=== PATIENT | male | born 1995 | race Caucasian/White ===

== ENCOUNTER 2017-08-08 15:45 | Emergency (ER) | payer BC ==
[2017-08-08 15:51] VITALS: BP 153/83
[2017-08-08] MEDS ORDERED: Sodium Chloride 0.9% 2,000 ML IV STA (15:57)
[2017-08-08] MEDS ORDERED: Ondansetron 4 MG/2 ML SDV IVPUSH ONE (15:57)
[2017-08-08] MEDS ORDERED: Sodium Chloride 0.9% 10 ML Syringe FLUSH PRN (15:57)
--- NOTE | 2017-08-08 16:21 | EDM.PDOC ---
ED HPI GENERAL MEDICAL PROBLEM - General Chief Complaint: Gastrointestinal Problem Stated Complaint: VOMITING Time Seen by Provider: 08/08/17 15:51 Source of Information: Reports: Patient History Limitations: Reports: No Limitations - History of Present Illness INITIAL COMMENTS - FREE TEXT/NARRATIVE: The patient presents with nausea, vomiting, and mild abdominal pain. The patient was in [place] for a weeding and he woke up this morning and did not feel right. He had some alcohol the night before. He developed nausea and vomiting. He has some upper abdominal pain from the vomiting. He has some mild edema. He has chills but no fever. He has no cough, congestion or runny nose. He still has his gallbladder and appendix. He did not eat any bad food. He is not sure if he was around anyone who was sick. Onset: Gradual Duration: Hour(s): Location: Reports: Abdomen (Upper epigastric pain) Quality: Reports: Ache Severity: Mild Improves with: Reports: None Worsens with: Reports: None Associated Symptoms: Reports: Fever/Chills, Nausea/Vomiting. Denies: Chest Pain , Cough, Shortness of Breath Abdominal Pain Score (Numeric/FACES): 3 - Related Data Allergies Allergy/AdvReac Type Severity Reaction Status Date / Time No Known Allergies Allergy Verified 08/08/17 15:48 Home Meds: Home Meds Ondansetron [Zofran ODT] 4 mg PO Q6H PRN #20 tab.dis 08/08/17 [Rx] Past Medical History - Past Health History Medical/Surgical History: Denies Medical/Surgical History Social & Family History - Recreational Drug Use Recreational Drug Use: No ED ROS GENERAL - Review of Systems Review Of Systems: See Below Constitutional: Reports: No Symptoms HEENT: Reports: No Symptoms Respiratory: Reports: No Symptoms Cardiovascular: Reports: No Symptoms Endocrine: Reports: No Symptoms GI/Abdominal: Reports: Abdominal Pain, Diarrhea, Nausea, Vomiting : Reports: No Symptoms Musculoskeletal: Reports: No Symptoms Skin: Reports: No Symptoms ED EXAM, GI/ABD - Physical Exam Exam: See Below Exam Limited By: No Limitations General Appearance: Alert, No Apparent Distress Ears: Normal External Exam Nose: Normal Inspection Head: Atraumatic, Normocephalic Neck: Normal Inspection Respiratory/Chest: No Respiratory Distress, Lungs Clear, Normal Breath Sounds Cardiovascular: Regular Rate, Rhythm, No Edema, No Murmur GI/Abdominal Exam: Soft, Non-Tender, No Organomegaly, No Mass Back Exam: Normal Inspection Course - Vital Signs Last Recorded V/S: Last Vital Signs Temp 97.4 F 08/08/17 15:49 Pulse 86 08/08/17 15:49 Resp BP 153/83 H 08/08/17 15:49 Pulse Ox 97 08/08/17 15:49 - Orders/Labs/Meds Orders: Active Orders 24 hr Category Date Time Status Peripheral IV Care [RC] . DIRECTED Care 08/08/17 15:57 Active Sodium Chloride 0.9% [Normal Saline] 2,000 ml Med 08/08/17 15:57 Active IV .BOLUS Sodium Chloride 0.9% [Saline Flush] Med 08/08/17 15:57 Active 10 ml FLUSH ASDIRECTED PRN ED Antiemetic Medication Reflex [OM.PC] Stat Oth 08/08/17 15:57 Ordered Peripheral IV Insertion Adult [OM.PC] Stat Oth 08/08/17 15:57 Ordered Medication Orders Sodium Chloride (Normal Saline) 2,000 mls @ 1,000 mls/hr IV .BOLUS STA Stop: 08/08/17 17:56 Last Admin: 08/08/17 16:19 Dose: 1,000 mls/hr Sodium Chloride (Saline Flush) 10 ml FLUSH ASDIRECTED PRN PRN Reason: Keep Vein Open Last Admin: 08/08/17 16:19 Dose: 10 ml Labs: Laboratory Tests 08/08/17 08/08/17 08/08/17 Range/Units 16:15 16:15 16:15 WBC 9.55 H (4.23-9.07) K/mm3 RBC 5.44 (4.63-6.08) M/mm3 Hgb 16.5 (13.7-17.5) gm/L Hct 46.0 (40.1-51.0) % MCV 84.6 (79.0-92.2) fl MCH 30.3 (25.7-32.2) pg MCHC 35.9 H (32.2-35.5) g/dl RDW Std Deviation 35.7 (35.1-43.9) fL Plt Count 262 (163-337) K/mm3 MPV 9.4 (9.4-12.3) fl Neut % (Auto) 84.5 H (34.0-67.9) % Lymph % (Auto) 7.0 L (21.8-53.1) % [place] % (Auto) 8.0 (5.3-12.2) % Eos % (Auto) 0.1 L (0.8-7.0) Baso % (Auto) 0.2 (0.1-1.2) % Neut # (Auto) 8.07 H (1.78-5.38) K/mm3 Lymph # (Auto) 0.67 L (1.32-3.57) K/mm3 [place] # (Auto) 0.76 (0.30-0.82) K/mm3 Eos # (Auto) 0.01 L (0.04-0.54) K/mm3 Baso # (Auto) 0.02 (0.01-0.08) K/mm3 Sodium 140 (136-145) mEq/L Potassium 4.0 (3.5-5.1) mEq/L Chloride 102 (98-107) mEq/L Carbon Dioxide 24 (21-32) mEq/L Anion Gap 18.0 H (5-15) BUN 13 (7-18) mg/dL Creatinine 1.0 (0.7-1.3) mg/dL Est Cr Clr Drug Dosing 148.50 mL/min Estimated GFR (MDRD) > 60 (>60) mL/min BUN/Creatinine Ratio 13.0 L (14-18) Glucose 108 H (74-106) mg/dL Calcium 9.9 (8.5-10.1) mg/dL Total Bilirubin 1.0 (0.2-1.0) mg/dL AST 16 (15-37) U/L ALT 17 (16-63) U/L Alkaline Phosphatase 98 (46-116) U/L Total Protein 8.3 H (6.4-8.2) g/dl Albumin 4.6 (3.4-5.0) g/dl Globulin 3.7 gm/dL Albumin/Globulin Ratio 1.2 (1-2) Lipase 73 (73-393) U/L Urine Color Yellow (Yellow) Urine Appearance Slt cloudy H (Clear) Urine pH 7.5 (5.0-8.0) Ur Specific [place] 1.025 (1.005-1.030) Urine Protein 2+ H (Negative) Urine Glucose (UA) Negative (Negative) Urine Ketones 1+ H (Negative) Urine Occult Blood Negative (Negative) Urine Nitrite Negative (Negative) Urine Bilirubin 1+ H (Negative) Urine Urobilinogen 1.0 (0.2-1.0) Ur Leukocyte Esterase Negative (Negative) Urine RBC 0-5 (0-5) /hpf Urine WBC 5-10 H (0-5) /hpf Ur Epithelial Cells 0-5 (0-5) /hpf Urine Bacteria Moderate H (FEW) /hpf Urine Mucus Many H (FEW) /hpf Meds: Medications Generic Name Dose Route Start Last Admin Trade Name Freq PRN Reason Stop Dose Admin Sodium Chloride 2,000 mls @ 1,000 mls/hr 08/08/17 15:57 08/08/17 16:19 Normal Saline IV 08/08/17 17:56 1,000 mls/hr .BOLUS STA Administration Sodium Chloride 10 ml 08/08/17 15:57 08/08/17 16:19 Saline Flush FLUSH 10 ml ASDIRECTED PRN Administration Keep Vein Open Discontinued Medications Generic Name Dose Route Start Last Admin Trade Name Freq PRN Reason Stop Dose Admin Ondansetron HCl 4 mg 08/08/17 15:57 08/08/17 16:19 Zofran IVPUSH 08/08/17 15:58 4 mg ONETIME ONE Administration - Re-Assessments/Exams Free Text/Narrative Re-Assessment/Exam: 08/08/17 16:21 I ordered an IV NS 2L bolus, zofran 4mg IV, labs and UA. 08/08/17 17:08 His WBC is elevated at 9.55. His Hgb is normal at 16.5. His anion gap is a little elevated at 18. His lipase is normal. His UA is negative for UTI. He feels much better. I will give him some zofran for at home. Departure - Departure Time of Disposition: 17:10 Disposition: Home, Self-Care 01 Condition: Good Clinical Impression: Vomiting - Discharge Information Prescriptions: Ondansetron [Zofran ODT] 4 mg PO Q6H PRN #20 tab.dis PRN Reason: Nausea/Vomiting Referrals: Nevaeh Riddle PA [Physician Transfer Controller] - 1 Week Forms: ED Department Discharge Additional Instructions: Take the zofran 4mg every 6 hours as needed for nausea or vomiting. Drink plenty of fluids. Please return if you cannot stop vomiting or if the pain increases or travels to the right lower abdomen where your appendix is. Slowly advance your diet. - My Orders Last 24 Hours: My Active Orders 08/08/17 15:57 Peripheral IV Care [RC] . DIRECTED Sodium Chloride 0.9% [Normal Saline] 2,000 ml IV .BOLUS Sodium Chloride 0.9% [Saline Flush] 10 ml FLUSH ASDIRECTED PRN ED Antiemetic Medication Reflex [OM.PC] Stat Peripheral IV Insertion Adult [OM.PC] Stat - Assessment/Plan Last 24 Hours: My Active Orders 08/08/17 15:57 Peripheral IV Care [RC] . DIRECTED Sodium Chloride 0.9% [Normal Saline] 2,000 ml IV .BOLUS Sodium Chloride 0.9% [Saline Flush] 10 ml FLUSH ASDIRECTED PRN ED Antiemetic Medication Reflex [OM.PC] Stat Peripheral IV Insertion Adult [OM.PC] Stat
== END 2017-08-08 17:25 | disposition home or self-care (01) ==
LOC: JD.ED 15:45
DX: R11.2 Nausea with vomiting, unspecified (principal)
CPT/HCPCS: 36415; 80053; 81001; 83690; 85025; 96361; 96374; 99284; J2405; J7040; J7050